=== PATIENT | female | born 1995 | race Caucasian/White ===

== ENCOUNTER 2017-01-12 22:20 | Inpatient (IN) | payer BC ==
[~2017-01-12] VITALS: Ht 162.6 cm; Wt 100.4 kg
[~2017-01-12 22:20] MED LIST: FERR-55 PO; PREN1TAB49 PO
[2017-01-12 23:08] VITALS: BP 116/56; RESP 18
[2017-01-12 23:30] VITALS: BP 116/56; PULSE 102; RESP 18
[2017-01-12 23:56] VITALS: Ht 162.6 cm; Wt 100.4 kg
[2017-01-13] VITALS (8 sets, daily range): BP systolic 104–121; BP diastolic 65–72; PULSE 76–95; RESP 18
[2017-01-13] MEDS ORDERED: DEXTROSE 5%-0.9% NACL 1,000 ML IV SCH
[2017-01-13] MEDS ORDERED: ACETAMINOPHEN 325 MG TAB PO PRN
[2017-01-13] MEDS ORDERED: ONDANSETRON 4 MG INJ IV PRN
[2017-01-13] MEDS: PANTOPRAZOLE 40 MG INJ IV SCH ×2 (06:30→06:42)
[2017-01-13 07:56] LABS: ADD SCAN DIFF NO
[2017-01-13 08:05] LABS: ABNORMAL IP MESSAGE 1; BASOPHIL # 0.1 10^3/ul (0.0-0.1); BASOPHILS % 0.6 % (0.0-2.0); EOSINOPHILS # 0.2 10^3/ul (0.0-0.5); EOSINOPHILS % 2.1 % (0.0-7.0); HEMATOCRIT 27.5 % (37.0-47.0); HEMOGLOBIN 7.7 g/dl (12.0-16.0); LYMPHOCYTES # 2.5 10^3/ul (0.8-2.9); LYMPHOCYTES % 28.1 % (15.0-51.0); MEAN CORPUSCULAR HEMOGLOBIN 17.6 pg (29.0-33.0); MEAN CORPUSCULAR VOLUME 62.9 fl (82.0-101.0); MEAN PLATELET VOLUME 9.2 fl (7.4-10.4); MONOCYTE # 0.6 10^3/ul (0.3-0.9); MONOCYTES % 7.1 % (0.0-11.0); NEUTROPHIL # 5.6 10^3/ul (1.6-7.5); NEUTROPHILS % 61.9 % (39.0-77.0); PLATELET COUNT 347 10^3/UL (140-415); RED BLOOD COUNT 4.37 10^6/ul (4.20-5.40); RED CELL DISTRIBUTION WIDTH 22.5 % (11.5-14.5)
[2017-01-13 08:41] LABS: ALBUMIN/GLOBULIN RATIO 1.21
[2017-01-13 08:47] LABS: ALBUMIN 3.9 g/dl (3.3-4.9); BILIRUBIN,INDIRECT 0.9 mg/dl (0-1.1); BILIRUBIN,TOTAL 0.9 mg/dl (0.2-1.3); CALCIUM 8.7 mg/dl (8.4-10.2); CREATININE 0.55 mg/dl (0.44-1.00); TOTAL PROTEIN 7.1 g/dl (6.1-8.1)
[2017-01-13 11:11] LABS: IRON 93 ug/dl (35-150)
[2017-01-13 11:13] LABS: RETICULOCYTE COUNT % 1.3 % (0.5-1.5)
[2017-01-13 11:21] LABS: TOTAL IRON BINDING CAPACITY 453 ug/dl (241-421)
[2017-01-13 11:55] LABS: FERRITIN 11.8 ng/ml (6.2-137.0)
[2017-01-13 12:25] LABS: FOLATE 12.1 ng/ml (2.8-20.0)
--- NOTE | 2017-01-13 19:03 | QN ---
Documentation Comment [id number] MAHAD CHEW MD January 13, 2017 19:03
--- NOTE | 2017-01-13 20:37 | HP ---
DATE OF ADMISSION: 01/12/2017 HISTORY OF PRESENT ILLNESS: The patient is a 21-year-old female with history of menorrhagia in the past, not actively, presented to the [facility] with abdominal pain. Patient was transferred here since patient is capitated to this hospital. Patient denies any hematemesis, melena, nausea, vomiting or diarrhea and patient's hemoglobin 6.9, in the past patient had a hemoglobin of 7.8, sodium 138, potassium 3.9 and calcium 9.1. The patient had a CT abdomen and pelvis with contrast shows distended gallbladder is unremarkable, no focal mass, free fluid. No significant lymphadenopathy , both ovaries were visualized , normal caliber appendix, fatty liver infiltration, small umbilical hernia. The patient has ultrasound of the abdomen, no evidence for dilated appendix, 100. Ultrasound of the pelvis shows unremarkable pelvic ultrasound. The patient was transferred here for further management. PAST MEDICAL HISTORY: Negative for diabetes, hypertension. ALLERGY HISTORY: NEGATIVE. FAMILY HISTORY: Negative. SOCIAL HISTORY: Negative. MEDICATION HISTORY: None. REVIEW OF SYSTEMS: HEENT: Unremarkable. RESPIRATORY: Unremarkable. CARDIOVASCULAR: Unremarkable. ABDOMEN: No abdominal tenderness. EXTREMITIES: Unremarkable. PHYSICAL EXAMINATION: GENERAL: The patient is awake, alert. VITAL SIGNS: Stable. HEAD: Atraumatic, normocephalic. Pupils equal, reactive to light. NECK: Supple. No JVD. LUNGS: Clear. CARDIOVASCULAR: S1, S2 are normal. ABDOMEN: Soft, nontender. Bowel sounds present. No palpable mass or hepatosplenomegaly. No guarding, rebound tenderness. EXTREMITIES: There is no cyanosis, clubbing, or edema. CENTRAL NERVOUS SYSTEM: The patient is awake, alert with no focal deficit. LABORATORY DATA: Hemoglobin 6.9, earlier was 7.8. Patient's glucose 136, sodium 138. Urinalysis is negative. IMPRESSION: 1. Patient has anemia, history of menorrhagia. 2. CT abdomen, normal caliber appendix, fatty liver infiltration. The patient has ultrasound abdomen, no evidence for dilated appendix pelvic ultrasound is negative. PLAN: To continue to give this patient IV fluid, blood transfusion. The patient is going to be discharged home in stable condition. Dictated By: MAHAD SCHRADER/SONIDO Conf#: [id number] DID#: [id number] [facility]
[2017-01-13] MEDS ORDERED: SOD FERRIC GLUC COMPLX 125 MG in SOD CHLORIDE 0.9% 100 ML IVPB SCH (21:00)
[2017-01-14 05:52] LABS: ADD SCAN DIFF NO
[2017-01-14 06:06] LABS: ABNORMAL IP MESSAGE 1; BASOPHIL # 0.1 10^3/ul (0.0-0.1); BASOPHILS % 0.5 % (0.0-2.0); EOSINOPHILS # 0.3 10^3/ul (0.0-0.5); EOSINOPHILS % 2.9 % (0.0-7.0); HEMATOCRIT 30.8 % (37.0-47.0); HEMOGLOBIN 8.8 g/dl (12.0-16.0); LYMPHOCYTES # 2.7 10^3/ul (0.8-2.9); LYMPHOCYTES % 27.6 % (15.0-51.0); MEAN CORPUSCULAR HEMOGLOBIN 18.4 pg (29.0-33.0); MEAN CORPUSCULAR HGB CONC 28.6 g/dl (32.0-37.0); MEAN CORPUSCULAR VOLUME 64.4 fl (82.0-101.0); MEAN PLATELET VOLUME 9.3 fl (7.4-10.4); MONOCYTE # 0.7 10^3/ul (0.3-0.9); MONOCYTES % 7.2 % (0.0-11.0); NEUTROPHILS % 61.4 % (39.0-77.0); PLATELET COUNT 383 10^3/UL (140-415); RED BLOOD COUNT 4.78 10^6/ul (4.20-5.40); RED CELL DISTRIBUTION WIDTH 23.1 % (11.5-14.5); WHITE BLOOD COUNT 9.8 10^3/ul (4.8-10.8)
[2017-01-14 08:05] VITALS: BP 120/72; RESP 20
--- NOTE | 2017-01-14 15:37 | PDOCDIS ---
Discharge Instructions CONDITION Patient Condition: Stable HOME CARE INSTRUCTIONS: Special Diet: reg ACTIVITY: Activity Restrictions: Slowly Increase Activity FOLLOW UP/APPOINTMENTS Appointments f/u own pcp 1 wk MAHAD CHEW MD January 14, 2017 15:37
--- NOTE | 2017-01-14 19:55 | QN ---
Documentation Comment [id number] MAHAD CHEW MD January 14, 2017 19:55
--- NOTE | 2017-01-15 06:17 | DS ---
DATE OF ADMISSION: 01/12/2017 DATE OF DISCHARGE: 01/14/2017 HOSPITAL COURSE: The patient was admitted with symptomatic anemia. The patient has no GI bleed, no vaginal bleed, but has history of menorrhagia. She received blood transfusion as well as IV Ferrle cit. The patient is stable to be discharged. DISCHARGE DIAGNOSES: Include 1. Symptomatic anemia. 2. History of menorrhagia. DISCHARGE MEDICATIONS: The patient was given prescription for iron outpatient to continue iron tabl et and multivitamin. FOLLOWUP: The patient is to follow with own PCP as an outpatient. DISPOSITION: The patient is stable at the time of discharge. Dictated By: MAHAD SCHRADER/SONIDO Conf#: [id number] DID#: [id number]
== END 2017-01-14 18:24 | disposition home or self-care (01) | DRG 812 ==
LOC: PP2 23:00
PROVIDERS: ADMIT Internal Medicine Nephrology; ATTEND Internal Medicine Nephrology
PROC: 30233N1 Transfusion of Nonautologous Red Blood Cells into Peripheral Vein, Percutaneous Approach (ICD-10-PCS; principal; 2017-01-13)
DX: D64.9 Anemia, unspecified (principal)
CPT/HCPCS: 36430; 80053; 82607; 82728; 82746; 83540; 85025; 85045; 86850; 86900; 86901; 86920; 87081; C9113; J2916; P9016